=== PATIENT | female | born 1965 | race Caucasian/White ===

== ENCOUNTER 2023-12-28 14:30 | Emergency (ER) | payer OTHER, SELFPAY ==
[2023-12-28] VITALS (8 sets, daily range): BP systolic 126–152; BP diastolic 75–95; PULSE 99–122; RESP 12–20; TEMP 36.7–37.4; O2SAT 93–100
--- NOTE | ~2023-12-28 | CT_ITS ---
CT abdomen pelvis w con Ordering provider: Lc Loaiza MD History: 58 years Female with . abd pain, diarrhea . Comparison: None. Technique: CT abdomen and pelvis with IV and without oral contrast. Automated exposure control and it erative reconstruction technique were employed. The dose-length product was 969.41 mGy-cm. 100 mL Omn ipaque 350 was given IV. Findings: VISUALIZED LOWER CHEST: Normal. UPPER ABDOMINAL ORGANS: Liver: Fat infiltration. Hypodensity in the right lobe of the liver segment #6 most likely a cyst jaime suring 1.8 x 1 cm. Gallbladder: Normal. Spleen: Normal. Stomach/duodenum: Thickened wall of the stomach which may indicate gastritis. Further evaluation advi sed. The Pancreas: Normal. Adrenals: Normal. Kidneys: Normal. PELVIC ORGANS: The bladder is underfilled. Highly suggestive fibroid in the fundus of the uterus. Ult rasound evaluation advised. BOWEL AND MESENTERY: Colon: No evidence of diverticulitis. Normal appendix. Small Bowel: Normal. No obstruction. Peritoneum/mesentery: No free air or free fluid. No mesenteric lymphadenopathy. RETROPERITONEUM: Normal aorta. No retroperitoneal lymphadenopathy. MUSCULOSKELETAL: Superficial soft tissues: The superficial soft tissues are normal. Bones: Normal spine. IMPRESSION: Fat infiltration. Hypodensity in the right lobe of the liver segment #6 most likely a cyst measuring 1.8 x 1 cm. Thickened wall of the stomach. Which may indicate gastritis. Possible fibroid uterus. Reviewed, dictated and finalized at location A. IMPRESSION: Fat infiltration. Hypodensity in the right lobe of the liver segment #6 most li luana a cyst measuring 1.8 x 1 cm. Thickened wall of the stomach. Which may indicate gastritis. Possible fibroid uterus.
[2023-12-28 14:45] LABS: Basophils Percent Auto 0.3 % (0.2-1.2); Eosinophils Absolute Auto 0.2 K/mm3 (0-0.3); Eosinophils Percent Auto 1.2 % (0-4.4); Hematocrit 45.3 % (37.0-47.0); Hemoglobin 14.7 g/dL (12.0-15.0); Immature Granulocyte Absolute 0.12 K/mm3 (0.00-0.031); Immature Granulocyte Percent A 0.9 % (0-0.5); Lymphocytes Absolute Auto 1.32 K/mm3 (0.9-3.2); Lymphocytes Percent Auto 9.7 % (18.3-44.2); Mean Corpuscular HGB Conc 32.5 g/dl (32-36); Mean Corpuscular Hemoglobin 27.7 pg (26-34); Mean Corpuscular Volume 85.3 fl (80-100); Mean Platelet Volume 9.4 fl (7.4-10.4); Monocytes Absolute Auto 0.5 K/mm3 (0.1-0.6); Neutrophils Absolute Auto 11.4 K/mm3 (1.3-6.7); Neutrophils Percent Auto 83.9 % (45.5-73.1); Platelet Count Result 238 k/mm3 (150-375); Red Blood Count 5.31 M/mm3 (4.2-5.4); Red Cell Distribution Width 13.5 % (11.5-14.5); White Blood Count 13.5 K/mm3 (4.5-10.0)
[2023-12-28 14:56] LABS: Alanine Aminotransferase 25 U/L (6-35); Albumin Level 4.5 g/dL (3.5-5.1); Alkaline Phosphatase 96 U/L (38-126); Anion Gap 11 mmol/L (4-12); Aspartate Amino Transferase 31 U/L (14-36); Bilirubin,Total 0.6 mg/dL (0.2-1.3); Blood Urea Nitrogen 14 mg/dL (7-17); Calcium 9.2 mg/dL (8.4-10.2); Carbon Dioxide 28 mmol/L (22-30); Chloride 95 mmol/L (98-107); Estimated CRCL calculation 96 ml/min; Estimated Glomerular Filt Rate > 60; Glucose 164 mg/dL (65-110); Lipase 20 U/L (23-300); Potassium 3.3 mmol/L (3.4-5.0); Sodium 134 mmol/L (137-145)
--- NOTE | 2023-12-28 17:45 | PC.NURSE ---
EDP aware pt unable to urinate at this time. Per EDP no urine needed at this time.
--- NOTE | 2023-12-28 18:00 | ED.ABDPAIN ---
HPI - Abdominal Pain General Chief Complaint: Abdominal Pain <Lc Loaiza MD - Last Filed: 12/28/23 19:05> Stated Complaint: abd pain <Lc Loaiza MD - Last Filed: 12/28/23 19:05> Time Seen by Provider: 12/28/23 17:13 <Lc Loaiza MD - Last Filed: 12/28/23 19:05> History of Present Illness HPI narrative: 58-year-old female with a past medical history significant for hypertension, hyperlipidemia, anxiety and previous diverticulitis. She presents to the emergency room with a chief complaint of left lower quadrant abdominal pain associated with diarrhea, mucus and blood in her stool, nauseousness without vomiting. She states she has had symptoms for last 2 days and acutely get worse over last day. Symptoms localized in the left lower quadrant and she has had several bouts of diarrhea with blood suspect mixed in. Denies any pain with defecation, has a history of breast cancer in remission and colon polyps that were noncancerous on her last endoscopy. Not on any anticoagulation medications. No chest pain, shortness a breath, fever, chills, rigors, cough. No at home with similar symptoms. She is from out of town visiting. Was otherwise in her normal state of health. <Lc Loaiza MD - Last Filed: 12/28/23 19:05> Related Data Allergies/Adverse Reactions: Allergies Allergy/AdvReac Type Severity Reaction Status Date / Time metronidazole [From Flagyl] AdvReac Abdominal Verified 12/28/23 17:21 Pain <Lc Loaiza MD - Last Filed: 12/28/23 19:05> Review of Systems Review of Systems: As reviewed above in HPI <Lc Loaiza MD - Last Filed: 12/28/23 19:05> Exam Narrative: GENERAL: Well appearing, in pain but not in any acute distress HEAD: [Normocephalic, atraumatic.] EYES: [PERRLA and EOMI.] ENT: Nares clear, no rhinorrhea or epistaxis. Mucous membranes moist. NECK: Supple. CHEST: [Clear to auscultation. No respiratory distress.] HEART: [Regular rate and rhythm]. No murmur heard. [Normal peripheral pulses.] ABDOMEN: [Soft, nondistended], tender to palpation of left lower quadrant without rebound, [No rigidity or guarding] EXTREMITIES: Normal range of motion. [No edema.] SKIN: Warm, dry, no rash. NEURO: [No focal deficits]. Alert and oriented [x3.] PSYCH: [Normal mood and affect.] <Lc Loaiza MD - Last Filed: 12/28/23 19:05> Course Vital Signs Vital signs: Vital Signs Temperature 37.4 C 12/28/23 14:38 Pulse Rate 122 H 12/28/23 14:38 Respiratory Rate 16 12/28/23 14:38 Blood Pressure 137/93 H 12/28/23 14:38 Pulse Oximetry 93 12/28/23 14:38 Oxygen Delivery Room Air 12/28/23 14:38 Temperature 36.7 C 12/28/23 19:30 Pulse Rate 99 12/28/23 23:00 Respiratory Rate 12 12/28/23 23:00 Blood Pressure 126/87 12/28/23 23:00 Pulse Oximetry 100 12/28/23 23:00 Oxygen Delivery Room Air 12/28/23 14:38 <Lc Loaiza MD - Last Filed: 12/28/23 19:05> Vital Signs Temperature 37.4 C 12/28/23 14:38 Pulse Rate 122 H 12/28/23 14:38 Respiratory Rate 16 12/28/23 14:38 Blood Pressure 137/93 H 12/28/23 14:38 Pulse Oximetry 93 12/28/23 14:38 Oxygen Delivery Room Air 12/28/23 14:38 Temperature 36.7 C 12/28/23 19:30 Pulse Rate 99 12/28/23 23:00 Respiratory Rate 12 12/28/23 23:00 Blood Pressure 126/87 12/28/23 23:00 Pulse Oximetry 100 12/28/23 23:00 Oxygen Delivery Room Air 12/28/23 14:38 <Jono Avendaño MD - Last Filed: 12/29/23 00:49> MDM - Abdominal Pain MDM Narrative Medical decision making narrative: 58-year-old male presenting with left lower quadrant abdominal pain associated with diarrhea, mucus and blood specks in the stool, nausea without vomiting. Has a history of diverticulitis which resembles this is slightly according to the patient. Was otherwise in her normal state of healt
[2023-12-28] MEDS: LACTATED RINGERS 1,000 ML 999 ML IV CONT (18:20)
[2023-12-28] MEDS: ONDANSETRON INJ 4 MG/2 ML VIAL IV PUSH ×2 (18:31→21:07)
[2023-12-28] MEDS: MORPHINE SULFATE (*CRX) 4 MG/ML INJ 6 MG IV PUSH (18:32)
--- NOTE | 2023-12-28 19:05 | PC.NURSE ---
Report given to MANFRED Roca
--- NOTE | 2023-12-28 20:34 | PC.NURSE ---
Bladder scanned pt at 2030, bladder scan showed 41 mls one time and 64 mls another time. Pt refused straight catheter after being unable to urinate and wanted to make sure it was documented that she refused the straight catheter.
[2023-12-28] MEDS: MORPHINE SULFATE (*CRX) 4 MG/ML INJ IV PUSH (20:41)
[2023-12-28] MEDS: SODIUM CHLORIDE 0.9% IV 1,000 ML 999 ML IV CONT (21:07)
[2023-12-28] MEDS: DICYCLOMINE HCL INJ 20 MG/2 ML VIAL IM (23:07)
[2023-12-28 23:47] LABS: Add Urine Microscopic? YES; Appearance Urine Clear (Clear); Bacteria Urine None Seen /hpf; Bilirubin Urine Negative (Negative); Blood Urine Trace (Negative); Color Urine Yellow (Yellow); Glucose Urine UA Negative (Negative); Ketones Urine Negative (Negative); Leukocyte Esterase Ur Negative LEU/UL (Negative); Need Manual Microscopic Reviewed; Nitrate Urine Negative (Negative); Non Pathogenic Casts 0-2; Protein Urine 1+ mg/dL (Negative); Specific Grav Ur > 1.045 (1.001-1.035); Squamous Epithelial Cell Urine None Seen /hpf (Few); Urobilinogen Urine 0.2 mg/dL (<2.0); WBC Urine 0-5 /hpf (0-3)
== END 2023-12-29 00:45 | disposition home or self-care (01) ==
PROVIDERS: Physician Assistant; Emergency Provider Emergency Medicine
DX: R10.32 Left lower quadrant pain (principal); R19.7 Diarrhea, unspecified; I10 Essential (primary) hypertension; E78.5 Hyperlipidemia, unspecified; F41.9 Anxiety disorder, unspecified; Z85.3 Personal history of malignant neoplasm of breast
CPT/HCPCS: 36415; 74177; 80053; 81001; 83690; 85025; 96361; 96372; 96374; 96375; 96376; 99284; J0500; J2270; J2405; J7030; J7120; Q9967